=== PATIENT | male | born 2005 | race Caucasian/White ===

== ENCOUNTER → 2025-04-19 | Outpatient (CLI) | payer MEDICAID, SELFPAY ==
[2025-04-19 11:05] LABS: Anion Gap 14 (5-15); BUN 14 mg/dL (4-19); Calcium,Total 9.8 mg/dL (7.6-11.0); Carbon Dioxide 22.6 mmol/L (21.0-32.0); Chloride 105 mmol/L (98-108); Cholesterol 194 mg/dL (<=190); EST Glomerular Filtration Rate 126 (>60); Glucose 94 mg/dL (70-99); High Density Lipoprotein 40 mg/dL; Low Density Lipoprotein Calc. 126 mg/dL; Sodium Level 141 mmol/L (133-145); Triglycerides 139 mg/dL; Very Low Density Lipoprotein 28 mg/dL (5-40); cholesterol:hdl ratio screen 4.86
== END | disposition home or self-care (01) ==
LOC: MFPLAB 09:08
PROVIDERS: PCP Family Medicine; Referring Provider Family Medicine; Visit Provider Family Medicine
DX: Z76.89 Persons encountering health services in other specified circumstances (principal)
CPT/HCPCS: 36415; 80048; 80061